=== PATIENT | female | born 1955 | race Caucasian/White ===

== ENCOUNTER 2016-10-02 09:28 | Emergency (ER) | payer BC ==
[2016-10-02 10:35] LABS: INTERNATIONAL NORMAL RATI 1.1 UNITS (-); PROTIME (NOT ORD) 14.2 SEC (12.0-14.5)
[2016-10-02 10:50] LABS: BASOPHILS 0.5 %; BASOPHILS ABSOLUTE 0.04 10/3/uL (0.0-0.16); EOSINOPHILS 0.7 %; EOSINOPHILS ABSOLUTE 0.06 10/3/uL (0.0-0.53); HEMOGLOBIN 15.5 g/dL (12.0-16.0); IMMATURE GRANULOCYTES 0.1 %; IMMATURE GRANULOCYTES ABSOLUTE 0.01 10/3/uL (0.0-0.11); LYMPHOCYTES 48.4 %; LYMPHOCYTES ABSOLUTE 4.08 10/3/uL (0.67-4.30); MEAN PLATELET VOLUME 10.1 fL (9.2-13.0); MONOCYTES 6.6 %; MONOCYTES ABSOLUTE 0.56 10/3/uL (0.21-1.20); NEUTROPHILS 43.7 %; NEUTROPHILS ABSOLUTE 3.68 10/3/uL (2.02-8.40); PLATELET COUNT 341 10/3/uL (150-400); RBC DISTRIBUTION WIDTH 14.4 % (12.0-16.0)
[2016-10-02 11:02] LABS: ER CBC TAT 0 Hrs 39 Mins; MANUAL DIFF NO %; MEAN CORPUS HGB CONC 36.9 g/dL (32.0-36.0); MEAN CORPUSCULAR VOLUME 86.6 fL (80-100); RED CELL COUNT 4.85 10/6/uL (4.0-5.6); WHITE BLOOD CELLS 8.4 10/3/uL (4.5-10.5)
== END 2016-10-02 12:26 | disposition home or self-care (01) ==
LOC: ER 09:28
PROVIDERS: Physician Assistant
DX: M71.20 Synovial cyst of popliteal space [Baker], unspecified knee (principal); M79.661 Pain in right lower leg
CPT/HCPCS: 85025; 85610; 93971; 99284